=== PATIENT | female | born 1965 | race Caucasian/White ===

== ENCOUNTER → 2017-07-20 | Day surgery (SDC) | payer OTHER ==
[~2017-07-20] MED LIST: BUPIVACAINE HCL PF 0.5% 10 ML VIAL ONE; ISOSULFAN BLUE 50 MG/5 ML VIAL SQ ONE; KETOROLAC TROMETHAMINE 30 MG/ML (IVP) VIAL ONE; LACTATED RINGER'S 1000 ML INJ 1,000 ML ONE; MEPERIDINE HCL 25 MG/ML VIAL ONE; MIDAZOLAM HCL 2 MG/2 ML VIAL ONE; MORPHINE SULFATE 4 MG/ML INJ ONE; ONDANSETRON HCL 4 MG/2 ML VIAL IV PUSH ONE; PROPOFOL 200 MG/20 ML AMP IV ONE; SODIUM CHLORIDE 0.9% INJ 10 ML ONE; ceFAZolin 2 GM PREMIX 50 ML ONE; oxyCODONE/ACETAMINOPHEN 5 MG/325 MG TAB ONE
--- NOTE | 2017-07-20 15:29 | TN ---
cc: ANAHY CHAVARRIA DATE OF SURGERY: 07/20/2017 DATE OF 1965 PRINCIPAL DIAGNOSIS Right breast cancer. PROCEDURE PERFORMED Right breast needle-localized lumpectomy, right axillary sentinel lymph node biopsy, and intraoperative radiation therapy. SURGEON Anahy Chavarria MD ANESTHESIA General via LMA device. INDICATION The patient is a 51-year-old female with a clinical stage I poorly differentiated right breast cancer. She has opted for breast conservation and understands the potential higher risk for local recurrence with intraoperative radiation therapy. After full disclosure and counseling, she has opted for intraoperative radiation. FINDINGS AT THE TIME OF SURGERY Four sentinel lymph nodes were identified. #1 had a count of 259 and was not blue. #2 had a count of 168, #3 had a count of 88, and #4 had a count of 67 and none had blue dye uptake. Ultrasound of the lumpectomy specimen did demonstrate the nodule within the excised tissue. PROCEDURE PERFORMED After informed consent was obtained and site verification was performed, the patient was brought to the radiology suite where she underwent ultrasound-guided needle localization of her less than 1 cm lesion at 11 o'clock 10 cm from the nipple. She also underwent peritumoral radionuclide injection and the only enhancement was in the axilla. She was then brought to the major operating room where she underwent general anesthesia via LMA device. She was given a single dose of IV Ancef and sequential compression hose were placed. The right breast and arm were prepped and draped in sterile fashion. 2-1/2 ccs of half-strength Lymphazurin were injected in the subareolar right breast and a 5-minute massage was performed. A crescent incision near the wire entry point was then anesthetized as well as an axillary incision at the inferior aspect of the right axillary hairline. Sharp dissection was performed in the area of the crescent incision until the wire entry point was identified through the skin and secured with a hemostat. The wire was cut off at the skin with pin cutters and a 2-0 Silk transfixion suture was placed at the wire entry point into the breast tissue. Sharp and electrocautery dissection was then performed circumferentially around the wire and the specimen was oriented with one long suture laterally, one short suture superiorly, and two sutures anteriorly. There was a long distance between the wire entry point through the skin and the site of the nodule. The specimen was removed and the posterior and superior margins appeared close. Each of these was reexcised using electrocautery with a stitch on the new margin and they were sent separately as permanent specimens. The lumpectomy specimen was also sent for permanent pathologic evaluation. At the conclusion of the dissection, the pectoralis muscle was visible and a 3-0 Vicryl was used to pursestring the breast tissue at the level of the muscle to cover it with the surrounding breast tissue. A 3.5-cm radiation applicator was then chosen and a 0-Prolene pursestring was placed in the subcutaneous tissue. The applicator was placed in the cavity and ultrasound evaluation demonstrated greater than 1 cm of thickness between the skin and the applicator superiorly, inferiorly, medially, and laterally. The applicator was removed and placed in a sterile sleeve and secured to the intraop radiation device. The applicator was then placed into the cavity and the pursestring suture was secured. Ultrasound again confirmed greater than 1 cm thickness in all directions and intraoperative radiation therapy was accomplished using the [employer] Intrabeam device for 17 minutes. At the conclusion of radiation, the applicator was removed and the pursestring suture was cut. Good hemostasis was noted and the breast wound was closed using interrupted 3-0 Vicryl subcutaneous sutures and a 4-0 Monocryl subcuticular suture. Attention was then turned to the right axilla and an incision was created at the inferior aspect of the right axillary hairline. Both sharp and electrocautery dissection were performed until the clavipectoral fascia was divided and the level I axilla was entered. Some central level I lymph nodes were immediately identified and each was circumferentially dissected free from surrounding structures using the harmonic scalpel with the counts as noted. Good hemostasis was noted in the axilla and the axillary wound was closed using interrupted 3-0 Vicryl subcutaneous sutures and a 4-0 Monocryl subcuticular suture. Steri-Strips and sterile dressings were applied to both wounds. The patient tolerated the procedure well with an estimated blood loss of 100 ccs. She was extubated and brought to recovery room in good condition. MD SUNIL Solit[employer]/KATHARINA /2:43 PM /3:03 PM
== END | disposition home or self-care (01) ==
LOC: ESDC 09:26
PROVIDERS: ATTEND Surgery
DX: C50.911 Malignant neoplasm of unspecified site of right female breast (principal)
CPT/HCPCS: 00400; 01610; 19125; 38525; 38792; 77290; 77300; 77334; 77370; 77424; 88307; J0690; J1885; J2175; J2250; J2270; J2405; J3010; J7120; Q9968; 77469